=== PATIENT | female | born 1985 ===

== ENCOUNTER 2020-07-02 17:17 | Emergency (ER) | payer SELFPAY ==
[2020-07-02 17:41] VITALS: BP 104/46
--- NOTE | 2020-07-02 18:27 | ER Document Report ---
ED Medical Screen (RME) - General Stated Complaint: SPOTTING APPROX WEEKS PREG Time Seen by Provider: 07/02/20 18:21 Notes: Patient c/o vaginal bleeding, spotting and now heavier than a period, clots noted. Slight lower abdominal cramps. Three positive tests at home. LMP; Jun 04 Physical Exam - Vital signs Vitals: Temp Pulse Resp BP Pulse Ox 98.4 F 86 16 104/46 L 99 07/02/20 17:40 07/02/20 17:40 07/02/20 17:40 07/02/20 17:40 07/02/20 17:40 Course - Re-evaluation Re-evalutation: 07/02/20 18:27 Patient no acute distress. Will order basic labs, urinalysis as well as an ultrasound. I have greeted and performed a rapid initial assessment of this patient. A comprehensive ED assessment and evaluation of the patient, analysis of test results and completion of the medical decision making process will be conducted by additional ED providers. - Vital Signs Vital signs: Temp Pulse Resp BP Pulse Ox 98.4 F 86 16 104/46 L 99 07/02/20 17:40 07/02/20 17:40 07/02/20 17:40 07/02/20 17:40 07/02/20 17:40
[2020-07-02 18:55] LABS: APPEARANCE,URINE CLEAR; BILIRUBIN,URINE NEGATIVE (NEGATIVE); COLOR,URINE YELLOW; GLUCOSE, URINE NEGATIVE (NEGATIVE); KETONES,URINE NEGATIVE (NEGATIVE); LEUKOCYTE ESTERASE,URINE NEGATIVE (NEGATIVE); NITRITE,URINE NEGATIVE (NEGATIVE); PROTEIN,URINE NEGATIVE (NEGATIVE); URINE SPECIFIC GRAVITY 1.009; UROBILINOGEN,URINE NEGATIVE mg/dL (<2.0)
[2020-07-02 18:56] LABS: ABSOLUTE EOSINOPHILS # (AUTO) 0.7 10^3/uL (0.0-0.6); ABSOLUTE LYMPHOCYTES (AUTO) 1.2 10^3/uL (0.5-4.7); ABSOLUTE MONOCYTES (AUTO) 0.3 10^3/uL (0.1-1.4); ABSOLUTE NEUT (AUTO) 1.8 10^3/uL (1.7-8.2); BASOPHILS % (AUTO) 0.6 % (0-2); HEMATOCRIT 38.4 % (36.0-47.0); HEMOGLOBIN 13.4 g/dL (12.0-15.5); LYMPHOCYTES % (AUTO) 29.6 % (13-45); MEAN CORPUSCULAR VOLUME 89 fl (80-97); MONOCYTES % (AUTO) 8.2 % (3-13); PLATELET COUNT 231 10^3/uL (150-450); RED BLOOD COUNT 4.33 10^6/uL (3.72-5.28); RED CELL DISTRIBUTION WIDTH 12.4 % (11.5-14.0); SEGMENTED NEUTROPHILS % (AUTO) 44.6 % (42-78); TOTAL CELLS COUNTED % (AUTO) 100 %; WHITE BLOOD COUNT 4.1 10^3/uL (4.0-10.5)
[2020-07-02 19:19] LABS: ALBUMIN 4.7 g/dL (3.5-5.0); ALKALINE PHOSPHATASE 72 U/L (38-126); ANION GAP 10 (5-19); ASPARTATE AMINO TRANSFERASE 22 U/L (14-36); BILIRUBIN,DIRECT 0.1 mg/dL (0.0-0.4); BILIRUBIN,TOTAL 0.4 mg/dL (0.2-1.3); BLOOD UREA NITROGEN 9 mg/dL (7-20); CALCIUM 9.5 mg/dL (8.4-10.2); CARBON DIOXIDE 25 mmol/L (22-30); CHLORIDE 105 mmol/L (98-107); GLUCOSE 79 mg/dL (75-110); POTASSIUM 4.1 mmol/L (3.6-5.0); TOTAL PROTEIN 7.8 g/dL (6.3-8.2)
--- NOTE | 2020-07-02 20:43 | RADIOLOGY REPORT (SQ) ---
Ultrasound pelvis transvaginal on 07/02/2020 at 7:59 PM CLINICAL INDICATION: Vaginal bleeding COMPARISON: None FINDINGS: Multiple sonographic images are obtained throughout the pelvis by transvaginal approach, both transverse and sagittal images are obtained. Uterus is retroverted/retroflexed. The uterus measures approximately 7.1 x 4.3 x 5.2 cm. Endometrial stripe measures 6 mm which is within normal limits. The right ovary measures approximately 2.5 x 1.6 x 2.4 cm. Flow is demonstrated within the right ovary. The left ovary measures approximately 2.5 x 3.0 x 1.3 cm. Flow is demonstrated in the left ovary. No adnexal mass or fluid collection is noted. No free fluid is noted. IMPRESSION: Essentially unremarkable exam.
== END 2020-07-03 00:24 | disposition left against medical advice (07) ==
LOC: ER 17:17
DX: O46.91 Antepartum hemorrhage, unspecified, first trimester (principal); O26.891 Other specified pregnancy related conditions, first trimester; R10.30 Lower abdominal pain, unspecified; Z53.20 Procedure and treatment not carried out because of patient's decision for unspecified reasons; Z3A.00 Weeks of gestation of pregnancy not specified
CPT/HCPCS: 36415; 76856; 80053; 81001; 84702; 85025; 86900; 86901; 93976; 99281